=== PATIENT | male | born 1970 | race Caucasian/White ===

== ENCOUNTER 2016-12-24 11:50 | Emergency (ER) | payer OTHER ==
[~2016-12-24] VITALS: Ht 182.9 cm; Wt 80.7 kg
[2016-12-24 15:05] VITALS: BP 136/70
== END 2016-12-24 15:05 | disposition home or self-care (01) ==
LOC: ED 11:50
DX: S01.81XA Laceration without foreign body of other part of head, initial encounter (principal); W17.89XA Other fall from one level to another, initial encounter; Y93.89 Activity, other specified; Y99.8 Other external cause status; Y92.89 Other specified places as the place of occurrence of the external cause